=== PATIENT | female | born 1990 | race African-American/Black ===

== ENCOUNTER → 2016-08-20 | Outpatient (CLI) | payer OTHER ==
--- NOTE | 2016-08-20 14:39 | KCIC ---
Examination: Obstetric ultrasound greater than 14 weeks HISTORY: History of small for dates COMPARISON: None available FINDINGS: Single living intrauterine identified with heart rate of 143 beats per minute. movement is seen Cardiac activity seen 4 chamber heart seen 3 vessel cord, cord insertion, fluid in the bladder, stomach, kidneys, spine, brain : seen position is breech. Cervical length is 4 cm. Amniotic fluid index 14.6 cm. The biparietal diameter measures 4.99 cm corresponding to 21 weeks and 1 day +/- 12 days Head circumference measures 19.80 cm corresponding to 22 weeks and 0 days +/- 10 days. Abdominal circumference measures 16.85 cm corresponding to 21 weeks and 6 days +/- 14 days. Femur length measures 3.86 cm corresponding to 22 weeks and 3 days +/- 13 days. Cephalic index 70.7 Head circumference to abdominal circumference ratio 1.18 Femur length to biparietal diameter 77.4. Femur length to head circumference 19.5. Femur length abdominal circumference 22.9 Ultrasound age is 21 weeks and 6 days with estimated date of delivery by ultrasound 12/25/2016. LMP is unknown. Estimated weight 471 g +/- 70 grams. Placenta location is anterior wall. There is a 1.9 x 2.2 x 1.9 cm hypoechogenicity identified within the placenta likely placental conrad. IMPRESSION: 1. Single living intrauterine with heart of 143 bpm. 2. Estimated gestational age is 21 weeks and 6 days with estimated date of delivery 12/25/2016. 3. 2.3 cm hypoechoic region identified within the placenta likely a placental conrad. Electronically signed by: Harry Montano MD (08/20/2016 2:36 PM)
== END | disposition home or self-care (01) ==
LOC: KCIC US 12:08
PROVIDERS: ATTEND Family Medicine
DX: O32.1XX0 Maternal care for breech presentation, not applicable or unspecified (principal); Z3A.21 21 weeks gestation of pregnancy; O26.842 Uterine size-date discrepancy, second trimester
CPT/HCPCS: 76805; 76817

== ENCOUNTER 2019-04-07 21:08 | Observation (INO) | payer MEDICAID ==
[2019-04-07] MEDS ORDERED: IV RINGERS,LACTATED 1000ML 1,000 ML IV SCH (21:30)
[2019-04-07 21:47] LABS: AMPHETAMINE/METHAMPHETAMINE NEG (NEG); BARBITURATES NEG (NEG); BENZODIAZEPINES NEG (NEG); CANNABINOIDS POS (NEG); COCAINE NEG (NEG); METHADONE NEG (NEG); OPIATES NEG (NEG); PHENCYCLIDINE NEG (NEG)
[2019-04-07 21:49] LABS: BILIRUBIN,URINE NEGATIVE (NEG); CLARITY,URINE CLEAR; COLOR,URINE YELLOW; NITRITE,URINE NEGATIVE (NEG); PROTEIN,URINE 30 mg/dL (NEG-TRACE); UROBILINOGEN,URINE 0.2 mg/dL (0.2 mg/dL)
[2019-04-07 21:55] LABS: BACTERIA,URINE MANY /HPF (0-FEW); SQUAMOUS EPITHELIAL CELL,UR MANY /LPF
[2019-04-07 21:56] LABS: RBC,URINE OCC /HPF (0-2)
== END 2019-04-07 23:29 | disposition home or self-care (01) ==
LOC: 3 SO LND 21:08
PROVIDERS: ADMIT Family Medicine; ATTEND Family Medicine
DX: O62.9 Abnormality of forces of labor, unspecified (principal); O21.2 Late vomiting of pregnancy; Z3A.36 36 weeks gestation of pregnancy
CPT/HCPCS: 80307; 81001; 87086; G0378; G0379